=== PATIENT | female | born 1935 | race Caucasian/White ===

== ENCOUNTER 2022-01-09 11:49 | Inpatient (IN) | payer OTHER ==
[~2022-01-09] VITALS: Ht 152.4 cm; Wt 63.2 kg
[2022-01-09 12:53] LABS: BASOPHILS # (AUTO) 0.1 X10'3 (0-0.2); BASOPHILS % (AUTO) 0.8 % (0-1); EOSINOPHILS # (AUTO) 0.2 X10'3 (0-0.9); EOSINOPHILS % (AUTO) 2.6 % (0-6); HEMATOCRIT 33.5 % (35.0-45.0); HEMOGLOBIN 10.6 g/dl (12.0-16.0); LYMPHOCYTES # (AUTO) 1.9 X10'3 (1.1-4.8); LYMPHOCYTES % (AUTO) 21.5 % (21-51); MEAN CORPUSCULAR HEMOGLOBIN 28.6 PG (27.0-31.0); MEAN CORPUSCULAR HGB CONC 31.6 g/dL (33.0-36.5); MEAN CORPUSCULAR VOLUME 90.5 FL (78-98); MEAN PLATELET VOLUME 9.5 FL (7.4-10.4); MONOCYTES # (AUTO) 0.5 X10'3 (0-0.9); MONOCYTES % (AUTO) 5.7 % (2-12); NEUTROPHILS # (AUTO) 6.3 X10'3 (1.8-7.7); NEUTROPHILS % (AUTO) 69.4 % (42-75); PLATELET COUNT 191 X10'3 (140-440); RED CELL DISTRIBUTION WIDTH 16.6 % (11.5-14.5)
[2022-01-09 13:12] LABS: ALANINE AMINOTRANSFERASE 19 U/L (12-78); ALBUMIN 3.2 G/DL (3.4-5.0); ALBUMIN/GLOBULIN RATIO 0.9 (1.1-1.5); ALKALINE PHOSPHATASE 82 IU/L (46-116); ANION GAP 11 (8-16); ASPARTATE AMINO TRANSFERASE 13 U/L (10-37); BILIRUBIN,TOTAL 0.3 MG/DL (0.1-1.0); BLOOD UREA NITROGEN 18 MG/DL (7-18); BUN/CREATININE RATIO 13.8 (6.6-38.0); CALCIUM 8.5 MG/DL (8.5-10.1); CHLORIDE 107 MMOL/L (99-107); GLUCOSE 119 MG/DL (70-104); POTASSIUM 4.4 MMOL/L (3.5-5.1); SODIUM 139 MMOL/L (135-145); TOTAL CARBON DIOXIDE 21.1 MMOL/L (24-32); TOTAL PROTEIN 6.7 G/DL (6.4-8.2); eGFR 39 ML/MIN
[2022-01-09] MEDS ORDERED: furosemide 10 MG/1 ML 10ml inj IV ONE (17:50)
[2022-01-09 18:39] LABS: D-DIMER 1.05 MG/L FEU (0-0.50)
[2022-01-09] MEDS ORDERED: magnesium hydroxide 30ml (MOM) UD suspension PO PRN (19:50)
[2022-01-09] MEDS ORDERED: magnesium Cl slow-release 64mg tablet PO PRN (19:50)
[2022-01-09] MEDS ORDERED: PERFLUTREN PROTEIN-A MICROSPHR (Optison) 0.22 MG/ML 3ML VIAL IV ONE (19:50)
[2022-01-09] MEDS ORDERED: POTASSIUM BICARB 20meq eff tab 20 MEQ TABLET.EFF PO PRN ×2 (19:50)
[2022-01-09] MEDS ORDERED: acetaminophen 325mg tablet PO PRN (19:50)
[2022-01-09] MEDS ORDERED: magnesium 4gm in 100ml NS 100 ML IV PRN (19:50)
[2022-01-09] MEDS ORDERED: potassium CL 10mEq/100ml bag 100 ML IV PRN (19:50)
[2022-01-09] MEDS ORDERED: mag hydrox/Alum hydrox/simeth 30ml oral suspension PO PRN (19:50)
[2022-01-09] MEDS ORDERED: magnesium 2GM in 50ml NS 50 ML IV PRN (19:50)
[2022-01-09] MEDS ORDERED: ondansetron/PF 4mg/2ml inj IV PRN (19:50)
[2022-01-09] MEDS ORDERED: DEXTROSE 15 GM of carb/4 tabs (each vial/BOTTLE has 4 tablets) PO PRN ×2 (20:00)
[2022-01-09] MEDS ORDERED: insulin Lispro (HumaLOG) vial - multi-dose SQ SCH (20:00)
[2022-01-09] MEDS ORDERED: MESSAGE TO PHARMACY PO ONE (20:00)
[2022-01-09] MEDS ORDERED: glucagon, human recombinant 1mg kit SUBCUT PRN (20:00)
[2022-01-09] MEDS: docusate sod 100mg capsule PO SCH (20:00)
[2022-01-09] MEDS ORDERED: dextrose 50%-water 50ml dispensing syringe IV PRN ×2 (20:00)
[2022-01-09] MEDS: K and/or MAG REPLACEMENT MC SCH (20:00)
[2022-01-09 20:20] LABS: POTASSIUM 4.8 MMOL/L (3.5-5.1)
[2022-01-09 20:25] LABS: HEMOGLOBIN A1C 6.2 % (4.5-6.2)
--- NOTE | 2022-01-10 04:05 | NUR ---
patient in the room resting with no sign of distress
[2022-01-10 04:47] VITALS: BP 120/48
[2022-01-10 06:00] VITALS: BP 114/51
--- NOTE | 2022-01-10 06:30 | NUR ---
Patient in room PCU 3024. I have received report from TERESE Almanza and had the opportunity to ask questions and assume patient care.
[2022-01-10 06:39] LABS: BASOPHILS # (AUTO) 0.1 X10'3 (0-0.2); EOSINOPHILS # (AUTO) 0.5 X10'3 (0-0.9); EOSINOPHILS % (AUTO) 7.1 % (0-6); HEMATOCRIT 30.8 % (35.0-45.0); HEMOGLOBIN 9.9 g/dl (12.0-16.0); LYMPHOCYTES # (AUTO) 1.6 X10'3 (1.1-4.8); LYMPHOCYTES % (AUTO) 23.5 % (21-51); MEAN CORPUSCULAR HEMOGLOBIN 28.6 PG (27.0-31.0); MEAN CORPUSCULAR HGB CONC 32.1 g/dL (33.0-36.5); MEAN CORPUSCULAR VOLUME 89.1 FL (78-98); MEAN PLATELET VOLUME 9.7 FL (7.4-10.4); MONOCYTES # (AUTO) 0.5 X10'3 (0-0.9); MONOCYTES % (AUTO) 7.4 % (2-12); NEUTROPHILS # (AUTO) 4.3 X10'3 (1.8-7.7); PLATELET COUNT 140 X10'3 (140-440); RED BLOOD COUNT 3.45 X10'6 (4.20-5.60); RED CELL DISTRIBUTION WIDTH 15.4 % (11.5-14.5)
--- NOTE | 2022-01-10 06:39 | NUR ---
Problems reprioritized. Patient report given, questions answered & plan of care reviewed with BRANDON GUDINO.
[2022-01-10 07:34] LABS: ALANINE AMINOTRANSFERASE 16 U/L (12-78); ALBUMIN 3.4 G/DL (3.4-5.0); ALBUMIN/GLOBULIN RATIO 1.1 (1.1-1.5); ALKALINE PHOSPHATASE 79 IU/L (46-116); ANION GAP 12 (8-16); ASPARTATE AMINO TRANSFERASE 15 U/L (10-37); BILIRUBIN,TOTAL 0.4 MG/DL (0.1-1.0); BLOOD UREA NITROGEN 19 MG/DL (7-18); BUN/CREATININE RATIO 15.2 (6.6-38.0); CALCIUM 8.8 MG/DL (8.5-10.1); CHLORIDE 111 MMOL/L (99-107); CREATININE 1.25 MG/DL (0.40-0.90); GLUCOSE 99 MG/DL (70-104); MAGNESIUM 1.9 MG/DL (1.5-2.4); POTASSIUM 3.9 MMOL/L (3.5-5.1); SODIUM 147 MMOL/L (135-145); TOTAL CARBON DIOXIDE 23.8 MMOL/L (24-32); TOTAL PROTEIN 6.6 G/DL (6.4-8.2); eGFR 41 ML/MIN
[2022-01-10] MEDS: K and/or MAG REPLACEMENT MC SCH ×2 (08:00→19:41)
[2022-01-10] MEDS: docusate sod 100mg capsule PO SCH ×2 (08:00→19:56)
[2022-01-10] MEDS ORDERED: LEVO112T5 PO (08:03)
[2022-01-10] MEDS ORDERED: GABA-530 PO (08:03)
[2022-01-10] MEDS ORDERED: METF-1203 PO (08:03)
[2022-01-10] MEDS ORDERED: MIRA25TA PO (08:03)
[2022-01-10] MEDS ORDERED: APIX2.5T PO (08:03)
[2022-01-10] MEDS ORDERED: ATOR20TA66 PO (08:03)
[2022-01-10] MEDS ORDERED: METO25TA6 PO (08:03)
[2022-01-10] MEDS ORDERED: metoprolol tartrate 25mg tablet PO SCH (08:37)
--- NOTE | 2022-01-10 09:02 | NUR ---
DM consult: Per EMR pt with T2DM, well controlled with A1c 6.2%. DM education not warranted at this time. Recommend liberalizing to regular diet in view of geriatric age, current A1c, and BG range 99-119 mg/dL throughout LOS. Will continue to follow. Addendum: 01/10/22 at [address] Amended: Links added.
[2022-01-10 11:00] VITALS: BP 111/45
[2022-01-10] MEDS: ipratropium/albuterol 3ml nebule NEB SCH ×4 (11:00→23:10)
[2022-01-10] MEDS ORDERED: iohexol 350MG/ML 100ml bottle IV ONE (11:27)
[2022-01-10 15:00] VITALS: BP 101/50
[2022-01-10] MEDS ORDERED: OXYB10TA30 PO (15:36)
[2022-01-10] MEDS ORDERED: CHOL100046 PO (15:38)
[2022-01-10] MEDS ORDERED: VIT1CAPS46 PO (15:38)
[2022-01-10] MEDS ORDERED: CETI10TA19 PO (15:38)
[2022-01-10] MEDS ORDERED: ASPI-611 PO (15:38)
[2022-01-10 18:00] VITALS: BP 111/52
--- NOTE | 2022-01-10 18:36 | NUR ---
Problems reprioritized. Patient report given, questions answered & plan of care reviewed with PARIS Shelton.
[2022-01-10] MEDS: metoprolol tartrate 12.5mg (1/2 tablet) PO SCH (19:57)
[2022-01-10] MEDS ORDERED: apixaban 2.5mg tablet PO SCH (20:00)
[2022-01-10] MEDS ORDERED: oxybutynin 5mg tablet PO SCH (21:00)
[2022-01-10] MEDS ORDERED: gabapentin 100mg capsule PO SCH (21:00)
[2022-01-10 22:00] VITALS: BP 97/30
[2022-01-11 02:00] VITALS: BP 96/33
[2022-01-11] MEDS: ipratropium/albuterol 3ml nebule NEB SCH ×4 (03:12→15:14)
[2022-01-11 06:00] VITALS: BP 109/43
[2022-01-11 07:03] LABS: BASOPHILS # (AUTO) 0.1 X10'3 (0-0.2); EOSINOPHILS # (AUTO) 0.4 X10'3 (0-0.9); EOSINOPHILS % (AUTO) 5.8 % (0-6); HEMATOCRIT 28.6 % (35.0-45.0); HEMOGLOBIN 9.3 g/dl (12.0-16.0); LYMPHOCYTES # (AUTO) 1.4 X10'3 (1.1-4.8); LYMPHOCYTES % (AUTO) 22.2 % (21-51); MEAN CORPUSCULAR HEMOGLOBIN 28.8 PG (27.0-31.0); MEAN CORPUSCULAR HGB CONC 32.4 g/dL (33.0-36.5); MEAN CORPUSCULAR VOLUME 88.9 FL (78-98); MEAN PLATELET VOLUME 9.7 FL (7.4-10.4); MONOCYTES # (AUTO) 0.5 X10'3 (0-0.9); MONOCYTES % (AUTO) 7.7 % (2-12); NEUTROPHILS # (AUTO) 4.1 X10'3 (1.8-7.7); NEUTROPHILS % (AUTO) 63.3 % (42-75); PLATELET COUNT 129 X10'3 (140-440); RED BLOOD COUNT 3.22 X10'6 (4.20-5.60); RED CELL DISTRIBUTION WIDTH 15.9 % (11.5-14.5); WHITE BLOOD COUNT 6.4 X10'3 (4.5-11.0)
[2022-01-11 07:13] LABS: ALANINE AMINOTRANSFERASE 14 U/L (12-78); ALBUMIN 3.1 G/DL (3.4-5.0); ALKALINE PHOSPHATASE 75 IU/L (46-116); ANION GAP 11 (8-16); ASPARTATE AMINO TRANSFERASE 13 U/L (10-37); BILIRUBIN,TOTAL 0.3 MG/DL (0.1-1.0); BLOOD UREA NITROGEN 16 MG/DL (7-18); BUN/CREATININE RATIO 12.5 (6.6-38.0); CALCIUM 8.5 MG/DL (8.5-10.1); CHLORIDE 111 MMOL/L (99-107); CREATININE 1.28 MG/DL (0.40-0.90); GLUCOSE 117 MG/DL (70-104); MAGNESIUM 1.9 MG/DL (1.5-2.4); POTASSIUM 3.6 MMOL/L (3.5-5.1); SODIUM 147 MMOL/L (135-145); TOTAL CARBON DIOXIDE 24.7 MMOL/L (24-32); TOTAL PROTEIN 6.2 G/DL (6.4-8.2); eGFR 40 ML/MIN
[2022-01-11] MEDS ORDERED: aspirin 81mg, enteric-coated 1 TAB TABLET.DR PO SCH (08:00)
[2022-01-11] MEDS ORDERED: mirabegron 25mg ER tablet PO SCH (08:00)
[2022-01-11] MEDS ORDERED: levoTHYROXINE 112mcg tablet PO SCH (08:00)
[2022-01-11] MEDS: K and/or MAG REPLACEMENT MC SCH (08:00)
[2022-01-11] MEDS ORDERED: atorvastatin 20mg tablet PO SCH (08:00)
[2022-01-11] MEDS: metoprolol tartrate 12.5mg (1/2 tablet) PO SCH (08:00)
[2022-01-11] MEDS ORDERED: non-formulary drug (Vit C/E/Zn/Coppr/Lutein/Zeaxan (Preservision Areds 2 Softgel) 1 CAP) PO SCH (08:00)
[2022-01-11] MEDS ORDERED: cetirizine 10mg tablet PO SCH (08:00)
[2022-01-11] MEDS: docusate sod 100mg capsule PO SCH (08:38)
--- NOTE | 2022-01-11 10:03 | NUR ---
At 1000 am I contacted IR to check if pt needs to be NPO for lung Biopsy today, and Per IR they stated that pt can eat and drink for now. They will contact me if there is any possibility of pt having the biopsy today, and needs to be NPO. Pt aware that she can eat and drink for now.
[2022-01-11 11:00] VITALS: BP 106/43
--- NOTE | 2022-01-11 11:50 | NUR ---
O2 Sat at rest on room air:88___% If below 89%: Recovery O2 Sat at rest on __3_LPM:__96_%:___% via (mask/nasal cannula, etc..) No further documentation is necessary. If O2 Sat did not drop below 89% on room air,ambulate patient on room air. O2 Sat while ambulating on room air:___% Recovery O2 Sat while ambulating on ___LPM:___% No further documentation is necessary. If patient does not drop below 89% while ambulating, he/she does not qualify for home O2.
[2022-01-11] MEDS ORDERED: MESSAGE TO NURSING PO NR (12:30)
[2022-01-11] MEDS ORDERED: FURO20TA4 PO (14:15)
[2022-01-11] MEDS ORDERED: LISI2.5T14 PO (14:15)
[2022-01-11] MEDS ORDERED: IPRA4AER IH (14:15)
[2022-01-11] MEDS ORDERED: POTA-207 PO (14:15)
--- NOTE | 2022-01-11 15:33 | NUR ---
Patient given discharge papers and instructions were discussed with her and her daughter dav. IVL removed. Patient has home oxygen deliver at bedside. Daughter dav stated she is confident in setting up the oxygen for home. Patient and family aware that they need to follow up with wrapper selector when they arrive back home in [place].
[2022-01-11] MEDS ORDERED: oxybutynin 5mg tablet PO SCH (20:00)
== END 2022-01-11 15:15 | disposition home or self-care (01) | DRG 189 ==
LOC: ER 11:50 → ED HOLD 19:54 → PCU 3S 01-10 03:50
PROVIDERS: ADMIT Internal Medicine; ATTEND Family Medicine
PROC: B32T1ZZ Computerized Tomography (CT Scan) of Left Pulmonary Artery using Low Osmolar Contrast (ICD-10-PCS; principal; 2022-01-10)
PROC: B3201ZZ Computerized Tomography (CT Scan) of Thoracic Aorta using Low Osmolar Contrast (ICD-10-PCS; 2022-01-10)
PROC: B32S1ZZ Computerized Tomography (CT Scan) of Right Pulmonary Artery using Low Osmolar Contrast (ICD-10-PCS; 2022-01-10)
DX: J96.20 Acute and chronic respiratory failure, unspecified whether with hypoxia or hypercapnia (principal); I50.21 Acute systolic (congestive) heart failure; I11.0 Hypertensive heart disease with heart failure; I48.0 Paroxysmal atrial fibrillation; E03.9 Hypothyroidism, unspecified; E11.9 Type 2 diabetes mellitus without complications; E78.5 Hyperlipidemia, unspecified; G47.33 Obstructive sleep apnea (adult) (pediatric); Z20.822 Contact with and (suspected) exposure to COVID-19; R91.8 Other nonspecific abnormal finding of lung field; D64.9 Anemia, unspecified; I25.10 Atherosclerotic heart disease of native coronary artery without angina pectoris; I34.0 Nonrheumatic mitral (valve) insufficiency; J84.10 Pulmonary fibrosis, unspecified; Z79.01 Long term (current) use of anticoagulants; Z79.84 Long term (current) use of oral hypoglycemic drugs; Z79.890 Hormone replacement therapy; Z87.891 Personal history of nicotine dependence; Z90.710 Acquired absence of both cervix and uterus; Z95.0 Presence of cardiac pacemaker; Z88.8 Allergy status to other drugs, medicaments and biological substances; Z79.899 Other long term (current) drug therapy; Z79.82 Long term (current) use of aspirin
CPT/HCPCS: 36415; 71045; 71275; 80053; 82948; 83036; 83735; 83880; 84132; 84145; 84484; 85025; 85379; 87081; 87635; 93005; 93306; 94640; 94760; 96374; 99285; A4615; G0378; J1815; J1940; J3490; Q9967